=== PATIENT | male | born 1965 | race Caucasian/White ===

== ENCOUNTER 2021-10-23 15:06 | Outpatient (CLI) | payer OTHER, SELFPAY ==
--- NOTE | 2021-10-23 15:30 | MR_ITS ---
[address] [address] Phone:?[phone] Fax:?[phone] Referring Physician Information: Jelani Taylor M.D. [id number] [facility] [address] Phone:?[phone] Fax:?[phone] Patient:Zhao Merritt D.O.B:?1965 Sex:?Male Phone:?[phone] [facility] MRN:?[id number] Exam Date:?10/23/2021 ? EXAM: MRI of the RIGHT KNEE, without contrast CLINICAL: Right knee pain for 4 months. Evaluate for medial meniscal tear. COMPARISONS: None available. TECHNICAL: MR sequences of the right knee: sagittals: PD, PDFS coronals: PD, T2FS axials: PD, PDFS SEDATION: None. CONTRAST: None. FINDINGS: Ligaments: ACL: Intact ACL anteromedial and posterolateral bundles, without sprain or tear. PCL: Intact PCL, without acute or chronic injury. MCL: Intact MCL superficial and deep layers, without injury. LCL: Intact LCL, without injury. Posterolateral corner: Popliteus, biceps femoris, iliotibial band, and the popliteofibular ligament appear intact. Posteromedial corner: Semimembranosus, pes anserine tendons and posterior oblique ligament appear intact. Extensor mechanism: Patellar tendon: Intact, without tendinopathy. Quadriceps tendon: Intact, without tendinopathy. Retinacula: Medial and lateral retinacula are intact. Fat pads: Unremarkable infrapatellar Hoffa's, quadriceps and prefemoral fat pads. Patellofemoral joint: Patella: Focal deep chondral fissure involving the inferior patellar median ridge as seen on sagittal series 6 image 16. Patellar cartilage otherwise appears maintained. Trochlea: Approximately 8 mm segment of full-thickness chondral loss involving the inferior central trochlea on sagittal series 6 image 14. Grade 2-3 chondral loss involves the medial and superior central trochlea. Medial compartment: Medial meniscus: Complex tearing involves the body and posterior horn. There is approximately 3 mm of medial and 3 mm of inferior displacement of torn body segment meniscal tissue into the medial gutter as seen on coronal series 8 images 18-20. Anterior horn and anterior root fibers are intact. Medial cartilage: Grade 3 chondral loss involves the weightbearing extending into the junction with the posterior nonweightbearing medial femoral condyle with minimal subchondral reactive edema. Focal osteophyte formation involves the posterior weightbearing medial femoral condyle with overlying full-thickness chondral loss adjacent to the posterior horn medial meniscus on sagittal series 6 image 21. Grade 3-4 chondral loss involves the anterior medial tibial plateau with mild underlying subchondral reactive marrow edema. Lateral compartment: Lateral meniscus: Focal radial tear near the free edge of the body segment on coronal series 8 image 21. Remainder of the lateral meniscus appears intact. Lateral cartilage: Focal deep chondral fissuring and small segment of deep chondral delamination involving the weightbearing lateral femoral condyle on sagittal series 6 image 8 and coronal series 8 image 22. Foci of deep chondral fissuring and small underlying segments of deep chondral delamination involves the lateral tibial plateau on sagittal series 6 image 10 and coronal series 8 image 19-23. Knee joint: Effusion: Small right knee effusion. Intra-articular bodies:?Small loose body is present within the popliteal cyst. A few adjacent small intra-articular bodies are present within the anterior intercondylar notch anterior to the distal ACL as seen on sagittal series 6 image 15-17 and axial series 4 image 22. Popliteal cyst: Small popliteal cyst is present with a small internal loose body within the popliteal cyst seen on axial series 4 image 17-18. Bones: No suspicious bone marrow signal alteration or fracture line. Degenerative peripheral marginal spurring is seen to involve the proximal tibiofibular articulation with mild reactive marrow edema about the articulation. IMPRESSION: 1. Tearing of the medial meniscus as above, with displacement of torn body segment meniscal tissue into the medial gutter. 2. Focal radial tear near the free edge of the body segment lateral meniscus. 3. Tricompartmental chondromalacia/chondral loss as above. 4. Small joint effusion with small intra-articular bodies within the anterior intercondylar notch. 5. Small popliteal cyst with a small internal loose body. JCZ Electronically signed on 10/24/2021 8:06:00 AM by Waqar Zuñiga D.O.
== END 2021-10-23 15:07 | disposition home or self-care (01) ==
LOC: MRI 15:08
PROVIDERS: Visit Provider Orthopaedic Surgery Sports Medicine
DX: M25.561 Pain in right knee (principal); S83.241A Other tear of medial meniscus, current injury, right knee, initial encounter; S83.281A Other tear of lateral meniscus, current injury, right knee, initial encounter; M94.261 Chondromalacia, right knee; M25.461 Effusion, right knee; M71.21 Synovial cyst of popliteal space [Baker], right knee
CPT/HCPCS: 73721

== ENCOUNTER 2021-12-22 07:42 | Emergency (ER) | payer OTHER, SELFPAY ==
[2021-12-22 07:47] VITALS: BP 165/89; PULSE 83; RESP 18; TEMP 36.3; O2SAT 96; BMI 35.6
--- NOTE | 2021-12-22 08:11 | ED.GENADULT ---
HPI - General Adult General Chief complaint: Difficulty Swallowing Stated complaint: Something stuck in throat Time Seen by Provider: 12/22/21 07:59 Source: patient Mode of arrival: ambulatory Limitations: no limitations History of Present Illness HPI narrative: 56-year-old male coming in today concerned that there is something in the back of his throat. He states that he woke up this morning and felt that there was something growing in the back of his throat. He is not having difficulty breathing or swallowing, he just has a sensation that there is something sitting on the back of his tongue. He denies eating yet this morning. He went to bed last night without any difficulty. States that he did have some alcohol last night. He does snore nightly. States that he had a sleep study several years ago and was not diagnosed with sleep apnea. He coughs for about 20-30 minutes every morning, this was no different today. He denies any fevers, chills, nausea, vomiting. He denies any pain in the back of his throat or mouth. Related Data Home Medications Medication Instructions Recorded Confirmed No Known Home Medications 12/22/21 12/22/21 Allergies Allergy/AdvReac Type Severity Reaction Status Date / Time No Known Drug Allergies Allergy Verified 12/22/21 07:46 Review of Systems Status of ROS: Reports: 10 or more systems reviewed and unremarkable except as noted in History and below [facility] Social History Smoking Status: Never smoker Do you use any of these nicotine containing products: None Second hand tobacco smoke exposure: No How often do you have a drink containing alcohol: 2-4 times a month How often do you have six or more drinks on one occasion: Never AUDIT-C Alcohol total score: 2 Non-prescribed substance use: denies use service: No Exam Narrative: Exam Narrative: Overweight, well-developed patient in no acute distress. Alert and oriented. Answers questions appropriately. Mood and affect are appropriate. Thoughts are goal oriented and rational. No tangential or magical thinking noted. Patient speaks in full sentences without needing to catch his breath. Voice sounds normal. Speech is not slurred or pressured. HEENT: Normocephalic atraumatic. Pupils are equally round reactive to light. Extraocular muscles are intact. Conjunctivae are moist without any icterus noted. Moist mucous membranes. Posterior pharynx is normal aside from a very large uvula that is sitting on the back of his tongue. It does not appear edematous, erythematous are in any other way infected. Neck is soft without any lymphadenopathy or thyromegaly. No masses are appreciated. Normal soft palate. Buccal mucosa is pink and moist. Tongue appears normal. Skin: Well perfused without any obvious rashes. Const: Vital Signs, click to edit/add: Vital Signs - 24 hr 12/22/21 07:47 Temperature 97.4 F L Pulse Rate [Pulse Oximeter] 83 Respiratory Rate 18 Blood Pressure [Ri t Upper Arm] 165/89 H Pulse Oximetry 96 Oxygen Delivery Me thod Room Air Course Vital Signs Vital signs: Initial Vital Signs Temperature 97.4 F L 12/22/21 07:47 Temperature Source Temporal Artery Scan 12/22/21 07:47 Pulse Rate 83 12/22/21 07:47 Respiratory Rate 18 12/22/21 07:47 Blood Pressure 165/89 H 12/22/21 07:47 Blood Pressure Mean 114 12/22/21 07:47 Blood Pressure Position Sitting 12/22/21 07:47 Pulse Oximetry 96 12/22/21 07:47 Oxygen Delivery Method 12/22/21 07:47 Vital Signs Temperature 97.4 F L 12/22/21 07:47 Pulse Rate 83 12/22/21 07:47 Respiratory Rate 18 12/22/21 07:47 Blood Pressure 165/89 H 12/22/21 07:47 Pulse Oximetry 96 12/22/21 07:47 Oxygen Delivery Method 12/22/21 07:47 Temperature 97.4 F L 12/22/21 07:47 Pulse Rate 83 12/22/21 07:47 Respiratory Rate 18 12/22/21 07:47 Blood Pressure 165/89 H 12/22/21 07:47 Pulse Oximetry 96 12/22/21 07:47 Oxygen Delivery Method 12/22/21 07:47 Medical Decision Making MDM Narrative Medical decision making narrative: 56-year-old male with a swollen uvula, likely secondary to snoring and alcohol use. We discussed repeating a sleep study, not drinking before bed. We discussed sleeping positions. We discussed reasons to return to the ER clinic. Patient was agreeable had no other questions. Discharge Plan Discharge Clinical Impression: Uvular swelling Patient Disposition: Home, Self-Care Condition: Stable Additional Instructions: Recommend repeating a sleep study at this time. Consider no alcohol use before bed. Follow-up with your primary care provider as needed. Return to the ER if you have any progressive difficulty breathing or swallowing. Prescriptions: No Action No Known Home Medications Stand Alone Forms: [employer] Info Instructions
== END 2021-12-22 09:11 | disposition home or self-care (01) ==
LOC: ED 09:07
PROVIDERS: Emergency Provider Family Medicine
DX: R60.9 Edema, unspecified (principal); R09.89 Other specified symptoms and signs involving the circulatory and respiratory systems
CPT/HCPCS: 99282; 99283

== ENCOUNTER 2022-02-12 09:38 | Day surgery (SDC) | payer OTHER, SELFPAY ==
[2022-02-12] VITALS (13 sets, daily range): BP systolic 129–154; BP diastolic 81–96; PULSE 54–68; RESP 16; TEMP 36.2–36.8; O2SAT 95–97; BMI 35.1
[2022-02-12] MEDS: LACTATED RINGERS 1000 ML 1,000 ML 100 ML IV (10:00)
[2022-02-12] MEDS: ETHYL CHLORIDE 1 APPLICATION 1 APPLIC TOPICAL (10:25)
[2022-02-12] MEDS: SODIUM CHLORIDE 0.9 % (FLUSH) 10 ML SYRINGE IVF (10:25)
[2022-02-12] MEDS: CEFAZOLIN 2 GM in 0.9 % SODIUM CHLORIDE Mini-bag 100 ML IVPB (13:15)
--- NOTE | 2022-02-12 13:36 | W.ANESCHARGE ---
Anesthesia Charges Start Date/Time Anesthesia Start Date: 02/12/22 Anesthesia Start Time: 13:01 Stop Date/Time Anesthesia Stop Date: 02/12/22 Anesthesia Stop Time: 13:55 Summary Emergency: No
--- NOTE | 2022-02-12 13:36 | SUR.OPER ---
PATIENT QUESTIONS ANSWERED SATISFACTORILY PREOPERATIVELY. PATIENT BROUGHT TO OR #3 PER CART. Patient positioned supine on OR #3 bed for the intubation. Final approval of positioning by surgeon. CONTINUOUS IRRIGATION OF THE RIGHT KNEE WITH 3000 NACL DURING THE PROCEDURE.
[2022-02-12] MEDS: ROPIVACAINE 0.5% 30 ML 150 MG INJECTION (13:41)
--- NOTE | 2022-02-12 13:49 | P.ORPRC_ITS ---
Procedure Note Date of procedure: 02/12/22 Procedure: PREOPERATIVE DIAGNOSIS: 1. Right knee medial and lateral meniscus tear 2. Right knee loose bodies 3. 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 Right knee medial and lateral meniscus tear 2. Right knee loose bodies 3. 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 Right knee arthroscopic partial medial and lateral menisectomy 2. Right knee arthroscopic loose body removal 3 right knee arthroscopic chondroplasty all 3 compartments are (medial, lateral, and patellofemoral) SURGEON: Jelani Taylor M.D. BELT REPAIRER: None ANESTHESIA: Spinal EBL: 2ml TOURNIQUET: 20 minutes at 300 torr COMPLICATIONS: None evident INDICATIONS: The patient is a pleasant 48-year-old male who has experienced right knee pain particularly with any twisting or turning. Physical exam was concerning for medial meniscus tear, this was confirmed on MRI. Additionally, attempted nonoperative management has been tried, and failed. Thus, surgery was recommended. FINDINGS: Indeed show grade 4 chondromalacia medial and lateral femoral condyles. On the medial and lateral both measured approximately 8 x 12 mm in the mL and anterior posterior directions, respectively. There were multiple loose bodies that were removed from the medial compartment of the knee. The largest measured approximately 9 mm in greatest dimension. Grade 3 chondromalacia patellofemoral compartment with the central trochlear groove as well as the patella broadly. Complex tearing medial meniscus from posterior horn to midbody. Lateral meniscus showed mild tearing of the central portion. DESCRIPTION OF PROCEDURE: After a thorough discussion of risks, benefits, and alternatives, the patient was brought to the operating room and placed upon the operating table. Induction of anesthesia was undertaken as previously noted. 2g iv Ancef was administered within 1 hr of incision preoperatively. Appropriate time-out was performed identifying proper patient, site, and procedure. The right lower extremity was prepped and draped in the appropriate sterile fashion using ChloraPrep. The limb was exsanguinated and tourniquet inflated. Anterolateral and anteromedial portals were established with an 11 blade, and a diagnostic arthroscopy was performed. This identified the findings as noted above. Following the diagnostic arthroscopy, a partial medial and lateral menisectomy was performed with the combination of basket forceps and a motorized shaver. Following this, the meniscus was re-probed and found to be stable. Approximately 20% of the medial meniscus and 5-10% of the lateral meniscus required resection. In addition, pituitary rongeur was utilized to help capture the loose bodies and removed him from the knee. Again the largest measured approximately 9 mm in diameter. Finally, chondroplasty was performed of the medial and lateral femoral condyles with loose chondral flaps. Also the patellofemoral compartment primarily involving the patella but also the trochlear groove with some loose chondral flaps. At this stage, the shaver was reinserted into the suprapatellar pouch and all re maining meniscal debris was evacuated. Instruments were removed, excess fluid was drained, and closure performed with 4-0 Monocryl with Steri-Strips. Dressings were applied, the tourniquet deflated, and the patient was awoken from anesthesia and transferred to the PACU in stable condition. PLAN: 1. Weightbear as tolerated operative extremity. Crutch / walker ambulation assistance PRN. 2. Ice, acetominophen and/or ibuprofen, and Percocet for pain as needed. 3. Knee range of motion and quad sets/straight leg raise regularly 4. Follow up with PA visit in 1-2 weeks for a wound check and possibly to initiate physical therapy.
--- NOTE | 2022-02-12 14:02 | W.ANESCHARGE ---
Anesthesia Charges Start Date/Time Anesthesia Start Date: 02/12/22 Anesthesia Start Time: 13:01 Stop Date/Time Anesthesia Stop Date: 02/12/22 Anesthesia Stop Time: 13:55 Summary Emergency: No
== END 2022-02-12 16:20 | disposition home or self-care (01) ==
PROVIDERS: Visit Provider Orthopaedic Surgery Sports Medicine
PROC: (CPT 29870; principal; 2022-02-12 11:30)
DX: S83.231A Complex tear of medial meniscus, current injury, right knee, initial encounter (principal); S83.281A Other tear of lateral meniscus, current injury, right knee, initial encounter; M22.41 Chondromalacia patellae, right knee; M23.41 Loose body in knee, right knee
CPT/HCPCS: 29880; 01400; 97161; J0690; J2400; J2704; J2795; J7120

== ENCOUNTER 2022-04-29 12:04 | Emergency (ER) | payer OTHER, SELFPAY ==
[2022-04-29] VITALS (37 sets, daily range): BP systolic 128–172; BP diastolic 87–121; PULSE 59–84; RESP 18; TEMP 36.9; O2SAT 93–99; BMI 35.6
--- NOTE | 2022-04-29 12:37 | CRLHL7_ITS ---
For Patients: As a result of the Century Cures Act, medical imaging exams and procedure reports are released immediately into your electronic medical record. You may view this report before your referring provider. If you have questions, please contact your health care provider. DATE: 04/29/2022 CLINICAL HISTORY: Patient with dizziness. TECHNIQUE: Standard helical CT image acquisition through the intracranial circulation following intravenous administration of contrast material with bolus tracking. Multiplanar reconstructed images were performed and interpreted. COMPARISON: CT same day. FINDINGS: There is no cerebral aneurysm or large vessel occlusion. The right internal carotid artery is normal. The right middle cerebral artery and its branches are normal. The right anterior cerebral artery and its branches are normal. The left internal carotid artery is normal. The left middle cerebral artery and its branches are normal. The left anterior cerebral artery and its branches are normal. The anterior communicating artery is well visualized and appears normal. The right vertebral artery and PICA are normal. The left vertebral artery and PICA are normal. The right vertebral artery is dominant. The basilar artery is patent and appears normal. The right posterior cerebral artery is normal. The left posterior cerebral artery is normal. The visualized venous structures are patent. IMPRESSION: Normal CT angiogram of the head without intracranial aneurysm or other neurovascular abnormality. Please note that all CT scans at this facility use dose modulation, iterative reconstruction, and/or weight-based dosing when appropriate to reduce radiation dose to as low as reasonably achievable. Dictated by Daniele Rao MD @ 04/29/2022 1:55:00 PM (Electronically Signed)
--- NOTE | 2022-04-29 12:37 | CRLHL7_ITS ---
For Patients: As a result of the Century Cures Act, medical imaging exams and procedure reports are released immediately into your electronic medical record. You may view this report before your referring provider. If you have questions, please contact your health care provider. DATE: 04/29/2022 CLINICAL HISTORY: Patient with dizziness. TECHNIQUE: Standard helical CT image acquisition of the neck up to the skull base after bolus intravenous contrast enhancement. Multiplanar reconstructed images performed on a separate workstation. COMPARISON: CT same day. FINDINGS: The origins of the great vessels from the aortic arch are patent. The origin of the right vertebral artery is patent. The origin of the left vertebral artery is patent. The common carotid arteries are patent. There is no stenosis at the origin of the right internal carotid artery. There is no stenosis at the origin of the left internal carotid artery. The rest of the cervical segments of the internal carotid arteries are patent up to the skull base. The right vertebral artery is dominant. The cervical segments of the vertebral arteries are patent up to the skull base. The visualized intracranial vasculature is unremarkable. The visualized lung apices are unremarkable. The thyroid gland is unremarkable. The soft tissues of the neck are unremarkable. There are degenerative changes in the cervical spine. IMPRESSION: Normal CT angiogram of the neck. Please note that all CT scans at this facility use dose modulation, iterative reconstruction, and/or weight-based dosing when appropriate to reduce radiation dose to as low as reasonably achievable. Dictated by Daniele Rao MD @ 04/29/2022 1:57:17 PM (Electronically Signed)
--- NOTE | 2022-04-29 12:37 | CRLHL7_ITS ---
For Patients: As a result of the Century Cures Act, medical imaging exams and procedure reports are released immediately into your electronic medical record. You may view this report before your referring provider. If you have questions, please contact your health care provider. INDICATION: Dizziness TECHNIQUE: CT head without contrast. COMPARISON: None. FINDINGS: CSF spaces: Within normal limits for age. Brain parenchyma and extra-axial spaces: The richmond-white differentiation is normal. No sign of intracranial hemorrhage, or midline shift. No extra-axial fluid collection. Skull base and calvarium: The visualized paranasal sinuses and mastoid air cells demonstrate no acute or significant findings. The visualized orbits are grossly unremarkable. No skull fractures. IMPRESSION: No evidence of acute intracranial abnormality. Specifically, no evidence of acute intracranial hemorrhage. If there is further clinical concern for acute/subacute ischemia would recommend further evaluation with MRI which would be more sensitive. Findings discussed with Dr. Lopez at 1:18 p.m. 04/29/2019. Please note that all CT scans at this facility use dose modulation, iterative reconstruction, and/or weight-based dosing when appropriate to reduce radiation dose to as low as reasonably achievable. Dictated by Jonny Cline MD @ 04/29/2022 1:18:45 PM (Electronically Signed)
[2022-04-29 13:11] LABS: Basophils Absolute Auto 0.02 K/uL (0.00-0.30); Basophils Percent Auto 0.3 % (0.0-3.0); Eosinophils Percent Auto 1.5 % (0.0-7.0); Hematocrit 42.4 % (37.0-53.0); Hemoglobin* 14.4 gm/dL (13.5-17.5); Immature Granulocytes Abs Auto 0.01 K/uL (0.00-0.30); Immature Granulocytes Pct Auto 0.2 %; Lymphocytes Absolute Auto 1.63 K/uL (0.90-2.90); Lymphocytes Percent Auto 25.2 % (20-44); Mean Corpuscular HGB Conc 34 gm/dL (32-36); Mean Corpuscular Hemoglobin 31 pg (26-34); Mean Corpuscular Volume 91 fL (80-100); Monocytes Percent Auto 9.6 % (0.0-11.0); Neutrophils Absolute Auto 4.08 K/uL (1.7-7.0); Neutrophils Percent Auto 63.2 % (42.0-72.0); Platelet Count* 234 K/uL (140-440); RDW Coefficient of Variation % 13.1 % (11.5-15.5); Red Blood Count 4.66 m/uL (4.30-5.90); White Blood Count* 6.46 K/uL (4.50-11.00)
[2022-04-29 13:12] LABS: Chloride* 104 mmol/L (96-114); Sodium* 140 mmol/L (135-149)
[2022-04-29 13:15] LABS: Blood Urea Nitrogen* 18 mg/dL (7-30); Carbon Dioxide* 29 mmol/L (20-32); Creatinine* 0.8 mg/dL (0.5-1.5); Est. Creatinine Clearance* 113.75; Estimated Glomerular Filt Rate 103 ml/min; Glucose* 90 mg/dL (60-115); Slide Review Reflex No
[2022-04-29 13:16] LABS: Calcium* 9.4 mg/dL (8.4-10.6)
[2022-04-29] MEDS: 0.9 % SODIUM CHLORIDE 1000 ml 1,000 ML IV (13:17)
[2022-04-29] MEDS: LORazepam 2 MG/ML inj 0.5 MG IVP (13:19)
[2022-04-29 13:39] LABS: PCR FLU A Negative PCR FLU A (Negative); PCR FLU B Negative PCR FLU B (Negative); PCR RSV Negative PCR RSV (Negative)
--- NOTE | 2022-04-29 13:39 | CRLHL7_ITS ---
For Patients: As a result of the Century Cures Act, medical imaging exams and procedure reports are released immediately into your electronic medical record. You may view this report before your referring provider. If you have questions, please contact your health care provider. Indication: Dizziness, rule out stroke Technique: Multiplanar, multisequence MRI of the brain obtained without contrast. Comparison: CT head 04/29/2022 Findings: The ventricles and cortical sulci are stable in configuration. No midline shift, hydrocephalus or herniation. No acute/subacute ischemia, intracranial hemorrhage or abnormal extra-axial fluid collection. Minimal scattered punctate foci of FLAIR hyperintensity are noted throughout the supratentorial white matter. Midline structures are unremarkable. The major expected intracranial flow voids are visualized. Included bone marrow signal is unremarkable. No suspicious findings in the regional soft tissues. Paranasal sinuses and mastoid air cells have a normal signal. Visualized orbits are unremarkable. Impression: Unremarkable MRI brain. No evidence of acute intracranial abnormality. Dictated by Suyapa Schmitz MD @ 04/29/2022 5:56:02 PM (Electronically Signed)
--- NOTE | 2022-04-29 13:44 | ED_ITS ---
HPI - Dizziness General Date Seen: 04/29/22 <Bert Lopez MD - Last Filed: 05/01/22 00:53> Chief Complaint: Dizziness/Vertigo <Bert Lopez MD - Last Filed: 05/01/22 00:53> Stated Complaint: Dizzy, lightheaded <Bert Lopez MD - Last Filed: 05/01/22 00:53> Time Seen by Provider: 04/29/22 12:21 <Bert Lopez MD - Last Filed: 05/01/22 00:53> Source: patient <Bert Lopez MD - Last Filed: 05/01/22 00:53> Mode of arrival: ambulatory <Bert Lopez MD - Last Filed: 05/01/22 00:53> Limitations: no limitations <Bert Lopez MD - Last Filed: 05/01/22 00:53> History of Present Illness HPI Narrative: 56-year-old gentleman presents here for evaluation of dizziness, he was out in [place], in a cooler, counting beer, when he noticed dizziness, this was not associated with bending over, he felt almost that he had a bit of a drinking gait, there is no nausea, or feeling that he might vomit he denies any numbness tingling or weakness, but did feel like he was almost like on a ship. The feeling has improved but still there, when he walked any felt that he might still fall over. He reports no history of trauma falls, fevers chills or sweats he does not have a headache, and there is no history of this happening previously. No illness within the last month leading up to this, his hearing is spine, with no tinnitus, or loss of hearing. No previous history of strokes or cardiac issues, these are early on no medications, denies alcohol intake. <Bert Lopez MD - Last Filed: 05/01/22 00:53> MD elicited complaint: dizziness and lightheadedness <Bert Lopez MD - Last Filed: 05/01/22 00:53> Onset (ago): hour(s) <Bert Lopez MD - Last Filed: 05/01/22 00:53> Timing: sudden onset <Bert Lopez MD - Last Filed: 05/01/22 00:53> Severity: moderate <Bert Lopez MD - Last Filed: 05/01/22 00:53> Description: sense of movement, off-balance and difficulty walking <Bert Lopez MD - Last Filed: 05/01/22 00:53> History of similar symptoms: No <Bert Lopez MD - Last Filed: 05/01/22 00:53> Exacerbating factors: change in body position <Bert Lopez MD - Last Filed: 05/01/22 00:53> Relieving factors: nothing <Bert Lopez MD - Last Filed: 05/01/22 00:53> Associated symptoms: denies other symptoms <Bert Lopez MD - Last Filed: 05/01/22 00:53> Related Data Home Medications: Previous Rx's Medication Instructions Recorded meclizine 25 mg tablet 25 mg PO TID #21 tabs 04/29/22 <Bert Lopez MD - Last Filed: 05/01/22 00:53> Allergies/Adverse Reactions: Allergies Allergy/AdvReac Type Severity Reaction Status Date / Time No Known Drug Allergies Allergy Verified 04/29/22 12:15 <Bert Lopez MD - Last Filed: 05/01/22 00:53> Review of Systems Status of ROS: Reports: 10 or more systems reviewed and unremarkable except as noted in History and below <Bert Lpoez MD - Last Filed: 05/01/22 00:53> PFSH PFS Medical History: Medical History Adenomatous colon polyp Low back pain <Bert Lopez MD - Last Filed: 05/01/22 00:53> Surgical History: Surgical History History of total right hip arthroplasty Hx of arthroscopy of right knee Hx of colonoscopy Hx of laminectomy <Bert Lopez MD - Last Filed: 05/01/22 00:53> Social History: Social History Smoking Status: Never smoker Do you use any of these nicotine containing products: None Second hand tobacco smoke exposure: No How often do you have a drink containing alcohol: 2-4 times a month How often do you have six or more drinks on one occasion: Never AUDIT-C Alcohol total score: 2 Non-prescribed substance use: denies use Caffeine: No service: No <Bert oLpez MD - Last Filed: 05/01/22 00:53> Exam Narrative: Exam Narrative: Patient is peaking normally,no problem with slurring words, oriented x3. Head eyes ears nose and throat exam show equal pupils, no scleral icterus, extraocular muscles are normal, no facial droop, speech is normal, trachea normal and midline. Cranial nerves 3-12 are normal, with notable horizontal nystagmus 2 beats bilaterally. TMs bilaterally are normal. Thyroid normal midline palpable not enlarged. Chest shows symmetrical rise bilaterally, normal auscultation with no wheezes, no increased work of breathing, no overt bruising or lesions seen, no tenderness is noted on auscultation. Heart sounds normal with no S3-S4 no murmurs clicks or gallops. Abdomen shows no obvious masses or hepatosplenomegaly, no organomegaly, bowel sounds are normal in all quadrants. No tenderness is noted also in all quadrants. Upper and lower extremities show normal power, normal range of motion, pulses are normal, sensations normal, fine motor movements are normal, pelvis is stable to rocking. Cervical spine shows normal range of motion, and palpably not tender. Thoracic spine shows normal range of motion, and palpably not tender, lumbar spine shows no tenderness to palpation percussion and is otherwise normal range of motion. Skin shows no rashes, petechiae or eccymosis. Gait is otherwise normal, <Bert Lopez MD - Last Filed: 05/01/22 00:53> Const: Vital Signs, click to edit/add: Vital Signs - 24 hr 04/29/22 12:08 04/29/22 12:31 04/29/22 12:32 Temperature 98.4 F Pulse Rate 77 76 Pulse Rate [Left P ulse Oximeter] 78 Respiratory Rate 18 Blood Pressure 148/109 H Blood Pressure [Ri ght Upper Arm] 149/109 H Pulse Oximetry 97 98 97 Oxygen Delivery Me thod Room Air 04/29/22 12:45 04/29/22 12:33 04/29/22 13:12 Temperature Pulse Rate 79 84 Pulse Rate [Left P ulse Oximeter] Respiratory Rate Blood Pressure Blood Pressure [Ri ght Upper Arm] Pulse Oximetry 98 98 97 Oxygen Delivery Wa thod 04/29/22 13:15 04/29/22 13:16 04/29/22 13:30 Temperature Pulse Rate 76 72 84 Pulse Rate [Left P ulse Oximeter] Respiratory Rate Blood Pressure 135/121 H Blood Pressure [Ri ght Upper Arm] Pulse Oximetry 96 97 93 Oxygen Delivery Me thod 04/29/22 13:32 04/29/22 14:00 04/29/22 14:03 Temperature Pulse Rate 71 68 78 Pulse Rate [Left P ulse Oximeter] Respiratory Rate Blood Pressure 144/101 H 146/103 H Blood Pressure [Ri ght Upper Arm] Pulse Oximetry 94 94 96 Oxygen Delivery Wa thod 04/29/22 14:04 04/29/22 14:33 04/29/22 14:35 Temperature Pulse Rate 75 60 63 Pulse Rate [Left P ulse Oximeter] Respiratory Rate Blood Pressure 128/87 Blood Pressure [Ri ght Upper Arm] Pulse Oximetry 95 95 98 Oxygen Delivery Wa thod 04/29/22 14:36 04/29/22 15:00 04/29/22 15:03 Temperature Pulse Rate 65 66 72 Pulse Rate [Left P ulse Oximeter] Respiratory Rate Blood Pressure 139/90 H Blood Pressure [Ri ght Upper Arm] Pulse Oximetry 97 95 94 Oxygen Delivery Wa thod 04/29/22 15:04 04/29/22 15:30 04/29/22 15:32 Temperature Pulse Rate 81 69 66 Pulse Rate [Left P ulse Oximeter] Respiratory Rate Blood Pressure 147/93 H Blood Pressure [Ri ght Upper Arm] Pulse Oximetry 97 95 96 Oxygen Delivery Wa thod 04/29/22 15:33 04/29/22 16:00 04/29/22 16:02 Temperature Pulse Rate 68 64 66 Pulse Rate [Left P ulse Oximeter] Respiratory Rate Blood Pressure 146/99 H Blood Pressure [Ri ght Upper Arm] Pulse Oximetry 96 96 97 Oxygen Delivery Wa thod 04/29/22 16:03 04/29/22 16:32 04/29/22 16:38 Temperature Pulse Rate 78 73 Pulse Rate [Left P ulse Oximeter] Respiratory Rate Blood Pressure 151/101 H Blood Pressure [Ri ght Upper Arm] Pulse Oximetry 96 98 Oxygen Delivery Me thod 04/29/22 17:25 04/29/22 17:26 04/29/22 17:30 Temperature Pulse Rate 63 69 61 Pulse Rate [Left P ulse Oximeter] Respiratory Rate Blood Pressure 146/87 H Blood Pressure [Ri ght Upper Arm] Pulse Oximetry 98 98 99 Oxygen Delivery Me thod 04/29/22 17:33 04/29/22 17:34 04/29/22 18:00 Temperature Pulse Rate 61 62 66 Pulse Rate [Left P ulse Oximeter] Respiratory Rate Blood Pressure 152/91 H Blood Pressure [Ri ght Upper Arm] Pulse Oximetry 98 96 96 Oxygen Delivery Me thod 04/29/22 18:03 04/29/22 18:04 04/29/22 18:30 Temperature Pulse Rate 66 65 65 Pulse Rate [Left P ulse Oximeter] Respiratory Rate Blood Pressure 172/111 H Blood Pressure [Ri ght Upper Arm] Pulse Oximetry 97 98 98 Oxygen Delivery Me thod 04/29/22 18:33 Temperature Pulse Rate 59 L Pulse Rate [Left P ulse Oximeter] Respiratory Rate Blood Pressure 156/98 H Blood Pressure [Ri ght Upper Arm] Pulse Oximetry 98 Oxygen Delivery Me thod <Bert Lopez MD - Last Filed: 05/01/22 00:53> Vital Signs, click to edit/add: Vital Signs - 24 hr 04/29/22 12:08 04/29/22 12:31 04/29/22 12:32 Temperature 98.4 F Pulse Rate 77 76 Pulse Rate [Left P ulse Oximeter] 78 Respiratory Rate 18 Blood Pressure 148/109 H Blood Pressure [Ri ght Upper Arm] 149/109 H Pulse Oximetry 97 98 97 Oxygen Delivery Me thod Room Air 04/29/22 12:45 04/29/22 12:33 04/29/22 13:12 Temperature Pulse Rate 79 84 Pulse Rate [Left P ulse Oximeter] Respiratory Rate Blood Pressure Blood Pressure [Ri ght Upper Arm] Pulse Oximetry 98 98 97 Oxygen Delivery Me thod 04/29/22 13:15 04/29/22 13:16 04/29/22 13:30 Temperature Pulse Rate 76 72 84 Pulse Rate [Left P ulse Oximeter] Respiratory Rate Blood Pressure 135/121 H Blood Pressure [Ri ght Upper Arm] Pulse Oximetry 96 97 93 Oxygen Delivery Me thod 04/29/22 13:32 04/29/22 14:00 04/29/22 14:03 Temperature Pulse Rate 71 68 78 Pulse Rate [Left P ulse Oximeter] Respiratory Rate Blood Pressure 144/101 H 146/103 H Blood Pressure [Ri ght Upper Arm] Pulse Oximetry 94 94 96 Oxygen Delivery Wa thod 04/29/22 14:04 04/29/22 14:33 04/29/22 14:35 Temperature Pulse Rate 75 60 63 Pulse Rate [Left P ulse Oximeter] Respiratory Rate Blood Pressure 128/87 Blood Pressure [Ri ght Upper Arm] Pulse Oximetry 95 95 98 Oxygen Delivery Wa thod 04/29/22 14:36 04/29/22 15:00 04/29/22 15:03 Temperature Pulse Rate 65 66 72 Pulse Rate [Left P ulse Oximeter] Respiratory Rate Blood Pressure 139/90 H Blood Pressure [Ri ght Upper Arm] Pulse Oximetry 97 95 94 Oxygen Delivery Wa thod 04/29/22 15:04 04/29/22 15:30 04/29/22 15:32 Temperature Pulse Rate 81 69 66 Pulse Rate [Left P ulse Oximeter] Respiratory Rate Blood Pressure 147/93 H Blood Pressure [Ri ght Upper Arm] Pulse Oximetry 97 95 96 Oxygen Delivery Wa thod 04/29/22 15:33 04/29/22 16:00 04/29/22 16:02 Temperature Pulse Rate 68 64 66 Pulse Rate [Left P ulse Oximeter] Respiratory Rate Blood Pressure 146/99 H Blood Pressure [Ri ght Upper Arm] Pulse Oximetry 96 96 97 Oxygen Delivery Wa thod 04/29/22 16:03 04/29/22 16:32 04/29/22 16:38 Temperature Pulse Rate 78 73 Pulse Rate [Left P ulse Oximeter] Respiratory Rate Blood Pressure 151/101 H Blood Pressure [Ri ght Upper Arm] Pulse Oximetry 96 98 Oxygen Delivery Wa thod 04/29/22 17:25 04/29/22 17:26 04/29/22 17:30 Temperature Pulse Rate 63 69 61 Pulse Rate [Left P ulse Oximeter] Respiratory Rate Blood Pressure 146/87 H Blood Pressure [Ri ght Upper Arm] Pulse Oximetry 98 98 99 Oxygen Delivery Wa thod 04/29/22 17:33 04/29/22 17:34 04/29/22 18:00 Temperature Pulse Rate 61 62 66 Pulse Rate [Left P ulse Oximeter] Respiratory Rate Blood Pressure 152/91 H Blood Pressure [Ri ght Upper Arm] Pulse Oximetry 98 96 96 Oxygen Delivery Me thod 04/29/22 18:03 04/29/22 18:04 04/29/22 18:30 Temperature Pulse Rate 66 65 65 Pulse Rate [Left P ulse Oximeter] Respiratory Rate Blood Pressure 172/111 H Blood Pressure [Ri ght Upper Arm] Pulse Oximetry 97 98 98 Oxygen Delivery Me thod 04/29/22 18:33 Temperature Pulse Rate 59 L Pulse Rate [Left P ulse Oximeter] Respiratory Rate Blood Pressure 156/98 H Blood Pressure [Ri ght Upper Arm] Pulse Oximetry 98 Oxygen Delivery Me thod <Oleksandr Anderson MD - Last Filed: 04/29/22 22:30> Documenting provider has reviewed patient's vital signs: yes <Bert Lopez MD - Last Filed: 05/01/22 00:53> Course Course Hospital Course: I discussed with patient his , the CT CTA of his head neck was oth erwise normal, this is not rule out a small stroke in given his history of acute onset of the dizziness, I would recommend that we go ahead and do an MRI of his head, he is in agreement with this as is , we will pre treat him with aspirin also, the fact that the CT regular of his head was negative. He feels much better now after the lorazepam and the fluids. <Bert Lopez MD - Last Filed: 05/01/22 00:53> Vital Signs Vital signs: Initial Vital Signs Temperature 98.4 F 04/29/22 12:08 Temperature Source Temporal Artery Scan 04/29/22 12:08 Pulse Rate 78 04/29/22 12:08 Respiratory Rate 18 04/29/22 12:08 Blood Pressure 149/109 H 04/29/22 12:08 Blood Pressure Mean 122 04/29/22 12:08 Blood Pressure Position Sitting 04/29/22 12:08 Pulse Oximetry 97 04/29/22 12:08 Oxygen Delivery Method 04/29/22 12:08 Vital Signs Temperature 98.4 F 04/29/22 12:08 Pulse Rate 78 04/29/22 12:08 Respiratory Rate 18 04/29/22 12:08 Blood Pressure 149/109 H 04/29/22 12:08 Pulse Oximetry 97 04/29/22 12:08 Oxygen Delivery Method 04/29/22 12:08 Temperature 98.4 F 04/29/22 12:08 Pulse Rate 59 L 04/29/22 18:33 Respiratory Rate 18 04/29/22 12:08 Blood Pressure 156/98 H 04/29/22 18:33 Pulse Oximetry 98 04/29/22 18:33 Oxygen Delivery Method 04/29/22 12:08 <Bert Lopez MD - Last Filed: 05/01/22 00:53> Initial Vital Signs Temperature 98.4 F 04/29/22 12:08 Temperature Source Temporal Artery Scan 04/29/22 12:08 Pulse Rate 78 04/29/22 12:08 Respiratory Rate 18 04/29/22 12:08 Blood Pressure 149/109 H 04/29/22 12:08 Blood Pressure Mean 122 04/29/22 12:08 Blood Pressure Position Sitting 04/29/22 12:08 Pulse Oximetry 97 04/29/22 12:08 Oxygen Delivery Method 04/29/22 12:08 Vital Signs Temperature 98.4 F 04/29/22 12:08 Pulse Rate 78 04/29/22 12:08 Respiratory Rate 18 04/29/22 12:08 Blood Pressure 149/109 H 04/29/22 12:08 Pulse Oximetry 97 04/29/22 12:08 Oxygen Delivery Method 04/29/22 12:08 Temperature 98.4 F 04/29/22 12:08 Pulse Rate 59 L 04/29/22 18:33 Respiratory Rate 18 04/29/22 12:08 Blood Pressure 156/98 H 04/29/22 18:33 Pulse Oximetry 98 04/29/22 18:33 Oxygen Delivery Method 04/29/22 12:08 <Oleksandr Anderson MD - Last Filed: 04/29/22 22:30> MDM - Dizziness MDM Narrative Medical decision making narrative: Life-threatening differential diagnosis considered include, CVA, other differential diagnosis include BPPV, labyrinthitis, Meniere's disease, vestibular neuronitis, migraine, multiple sclerosis, otitis media, viral syndrome as well as other etiologies <Bert Lopez MD - Last Filed: 05/01/22 00:53> Life-threatening differential diagnosis considered include, CVA, other differential diagnosis include BPPV, labyrinthitis, Meniere's disease, v estibular neuronitis, migraine, multiple sclerosis, otitis media, viral syndrome as well as other etiologies I inherited this patient at change of shift from Dr. Lopez. presentingto the emergency department for vertiginous symptoms. Pending at the time was an MRI of the head. alreadyAccomplished wasA normal CTHead with unremarkable angiographyOf headAnd neck Mr. Merritt was feeling much improved After treatment Of IV fluids, Ativan and possibly time. on Repeat exam There was some Subtle Nystagmus beating right But otherwise Pretty asymptomatic. The nystagmus resolved with repeat exam. Further inquiry around events of today he is describing more of a lightheadedness with then this tilting and needing to hang onto thingsand experiencing a subtle dizziness. No chestpain and no shortnessof breath. MRI of the head wasunremarkable. No events on desk monitor during time in the emergency department. no evidenceof CVA. Relativelybrief duration and without prodrome unlikely to be labyrinthitis orMeniere's. possible canalith matter. Possible headache etiology but otherwise appears to be more of A periphera lIssueAnd there are No findings onCardiac aspectOfWorkup.No seizure-like activityOrAmnesia or postictal behavior. We discussed optionsfor furthertreatment should that be necessary. Was ambulatoryfrom the emergency department. -dr <Oleksandr Anderson MD - Last Filed: 04/29/22 22:30> Medical Records Attestation: I reviewed the patient's medical records. <Bert Lopez MD - Last Filed: 05/01/22 00:53> Lab Data Attestation: I reviewed the patient's lab results. <Bert Lopez MD - Last Filed: 05/01/22 00:53> Labs: Lab Results 04/29/22 04/29/22 04/29/22 Range/Units 12:37 12:40 12:45 WBC 6.46 (4.50-11.00) K/uL RBC 4.66 (4.30-5.90) m/uL Hgb 14.4 (13.5-17.5) gm/dL Hct 42.4 (37.0-53.0) % MCV 91 (80-100) fL MCH 31 (26-34) pg MCHC 34 (32-36) gm/dL RDW Coeff of Rolo 13.1 (11.5-15.5) % Plt Count 234 (140-440) K/uL Neut % (Auto) 63.2 (42.0-72.0) % Lymph % (Auto) 25.2 (20-44) % [place] % (Auto) 9.6 (0.0-11.0) % Eos % (Auto) 1.5 (0.0-7.0) % Baso % (Auto) 0.3 (0.0-3.0) % Neut # (Auto) 4.08 (1.7-7.0) K/uL Lymph # (Auto) 1.63 (0.90-2.90) K/uL [place] # (Auto) 0.60 (0.00-0.90) K/UL Eos # (Auto) 0.10 (0.00-0.50) K/uL Baso # (Auto) 0.02 (0.00-0.30) K/uL Sodium (135-149) mmol/L Potassium (3.6-5.1) mmol/L Chloride (96-114) mmol/L Carbon Dioxide (20-32) mmol/L BUN (7-30) mg/dL Creatinine (0.5-1.5) mg/dL Estimated Creat Clear Estimated GFR ml/min Glucose (60-115) mg/dL Calcium (8.4-10.6) mg/dL C-Reactive Protein SARS-CoV-2 (PCR) Negative SARS-CoV-2 (Negative) Influenza Type A (PCR) Negative PCR FLU A (Negative) Influenza Type B (PCR) Negative PCR FLU B (Negative) RSV (PCR) Negative PCR RSV (Negative) POC Troponin I 0.00 L (0.01-0.04) ng/ml 04/29/22 04/29/22 Range/Units 12:45 12:45 WBC (4.50-11.00) K/uL RBC (4.30-5.90) m/uL Hgb (13.5-17.5) gm/dL Hct (37.0-53.0) % MCV (80-100) fL MCH (26-34) pg MCHC (32-36) gm/dL RDW Coeff of Rool (11.5-15.5) % Plt Count (140-440) K/uL Neut % (Auto) (42.0-72.0) % Lymph % (Auto) (20-44) % [place] % (Auto) (0.0-11.0) % Eos % (Auto) (0.0-7.0) % Baso % (Auto) (0.0-3.0) % Neut # (Auto) (1.7-7.0) K/uL Lymph # (Auto) (0.90-2.90) K/uL [place] # (Auto) (0.00-0.90) K/UL Eos # (Auto) (0.00-0.50) K/uL Baso # (Auto) (0.00-0.30) K/uL Sodium 140 (135-149) mmol/L Potassium 4.0 (3.6-5.1) mmol/L Chloride 104 (96-114) mmol/L Carbon Dioxide 29 (20-32) mmol/L BUN 18 (7-30) mg/dL Creatinine 0.8 (0.5-1.5) mg/dL Estimated Creat Clear 113.75 Estimated GFR 103 ml/min Glucose 90 (60-115) mg/dL Calcium 9.4 (8.4-10.6) mg/dL C-Reactive Protein Cancelled < 0.5 L SARS-CoV-2 (PCR) (Negative) Influenza Type A (PCR) (Negative) Influenza Type B (PCR) (Negative) RSV (PCR) (Negative) POC Troponin I (0.01-0.04) ng/ml <Bert Lopez MD - Last Filed: 05/01/22 00:53> Lab Results 04/29/22 04/29/22 04/29/22 Range/Units 12:37 12:40 12:45 WBC 6.46 (4.50-11.00) K/uL RBC 4.66 (4.30-5.90) m/uL Hgb 14.4 (13.5-17.5) gm/dL Hct 42.4 (37.0-53.0) % MCV 91 (80-100) fL MCH 31 (26-34) pg MCHC 34 (32-36) gm/dL RDW Coeff of Rolo 13.1 (11.5-15.5) % Plt Count 234 (140-440) K/uL Neut % (Auto) 63.2 (42.0-72.0) % Lymph % (Auto) 25.2 (20-44) % [place] % (Auto) 9.6 (0.0-11.0) % Eos % (Auto) 1.5 (0.0-7.0) % Baso % (Auto) 0.3 (0.0-3.0) % Neut # (Auto) 4.08 (1.7-7.0) K/uL Lymph # (Auto) 1.63 (0.90-2.90) K/uL [place] # (Auto) 0.60 (0.00-0.90) K/UL Eos # (Auto) 0.10 (0.00-0.50) K/uL Baso # (Auto) 0.02 (0.00-0.30) K/uL Sodium (135-149) mmol/L Potassium (3.6-5.1) mmol/L Chloride (96-114) mmol/L Carbon Dioxide (20-32) mmol/L BUN (7-30) mg/dL Creatinine (0.5-1.5) mg/dL Estimated Creat Clear Estimated GFR ml/min Glucose (60-115) mg/dL Calcium (8.4-10.6) mg/dL C-Reactive Protein SARS-CoV-2 (PCR) Negative SARS-CoV-2 (Negative) Influenza Type A (PCR) Negative PCR FLU A (Negative) Influenza Type B (PCR) Negative PCR FLU B (Negative) RSV (PCR) Negative PCR RSV (Negative) POC Troponin I 0.00 L (0.01-0.04) ng/ml 04/29/22 04/29/22 Range/Units 12:45 12:45 WBC (4.50-11.00) K/uL RBC (4.30-5.90) m/uL Hgb (13.5-17.5) gm/dL Hct (37.0-53.0) % MCV (80-100) fL MCH (26-34) pg MCHC (32-36) gm/dL RDW Coeff of Rolo (11.5-15.5) % Plt Count (140-440) K/uL Neut % (Auto) (42.0-72.0) % Lymph % (Auto) (20-44) % [place] % (Auto) (0.0-11.0) % Eos % (Auto) (0.0-7.0) % Baso % (Auto) (0.0-3.0) % Neut # (Auto) (1.7-7.0) K/uL Lymph # (Auto) (0.90-2.90) K/uL [place] # (Auto) (0.00-0.90) K/UL Eos # (Auto) (0.00-0.50) K/uL Baso # (Auto) (0.00-0.30) K/uL Sodium 140 (135-149) mmol/L Potassium 4.0 (3.6-5.1) mmol/L Chloride 104 (96-114) mmol/L Carbon Dioxide 29 (20-32) mmol/L BUN 18 (7-30) mg/dL Creatinine 0.8 (0.5-1.5) mg/dL Estimated Creat Clear 113.75 Estimated GFR 103 ml/min Glucose 90 (60-115) mg/dL Calcium 9.4 (8.4-10.6) mg/dL C-Reactive Protein Cancelled < 0.5 L SARS-CoV-2 (PCR) (Negative) Influenza Type A (PCR) (Negative) Influenza Type B (PCR) (Negative) RSV (PCR) (Negative) POC Troponin I (0.01-0.04) ng/ml <Oleksandr Anderson MD - Last Filed: 04/29/22 22:30> Imaging Data CT scan - head: Radiologist's impression: atient: SUKI MERRITT Facility:[facility] Patient ID:?[id number] Site Patient ID:?[id number]. Site :?1965 Study:?CT Head STROKE PROTOCOL-04/29/2022 1:01:17 PM Ordering Physician:Marty Noel Final Report: INDICATION: Dizziness TECHNIQUE: CT head without contrast. COMPARISON: None. FINDINGS: CSF spaces: Within normal limits for age. Brain parenchyma and extra-axial spaces: The richmond-white differentiation is normal. No sign of intracranial hemorrhage, or midline shift. No extra-axial fluid collection. Skull base and calvarium: The visualized paranasal sinuses and mastoid air cells demonstrate no acute or significant findings. The visualized orbits are grossly unremarkable. No skull fractures. IMPRESSION: No evidence of acute intracranial abnormality. Specifically, no evidence of acute intracranial hemorrhage. If there is further clinical concern for acute/subacute ischemia would recommend further evaluation with MRI which would be more sensitive. Findings discussed with Dr. Lopez at 1:18 p.m. 04/29/2019. Please note that all CT scans at this facility use dose modulation, iterative reconstruction, and/or weight-based dosing when appropriate to reduce radiation dose to as low as reasonably achievable. Dictated by Jonny Cline MD @ 04/29/2022 1:18:45 PM (Electronic Signature) atient: SUKI MERRITT Facility:?[facility] Patient ID:?[id number] Site Patient ID:?[id number]. Site :?1965 Study:?CT Neck Angio Angio W/ 95CC [id number] 1:05:39 PM Ordering Physician:Marty Noel Final Report: DATE: 04/29/2022 CLINICAL HISTORY: Patient with dizziness. TECHNIQUE: Standard helical CT image acquisition of the neck up to the skull base after bolus intravenous contrast enhancement. Multiplanar reconstructed images performed on a separate workstation. COMPARISON: CT same day. FINDINGS: The origins of the great vessels from the aortic arch are patent. The origin of the right vertebral artery is patent. The origin of the left vertebral artery is patent. The common carotid arteries are patent. There is no stenosis at the origin of the right internal carotid artery. There is no stenosis at the origin of the left internal carotid artery. The rest of the cervical segments of the internal carotid arteries are patent up to the skull base. The right vertebral artery is dominant. The cervical segments of the vertebral arteries are patent up to the skull base. The visualized intracranial vasculature is unremarkable. The visualized lung apices are unremarkable. The thyroid gland is unremarkable. The soft tissues of the neck are unremarkable. There are degenerative changes in the cervical spine. IMPRESSION: Normal CT angiogram of the neck. Please note that all CT scans at this facility use dose modulation, iterative reconstruction, and/or weight-based dosing when appropriate to reduce radiation dose to as low as reasonably achievable. Dictated by Daniele Rao MD @ 04/29/2022 1:57:17 PM (Electronic Signature) Patient: SUKI MERRITT Facility:?[facility] Patient ID:?[id number] Site Patient ID:?[id number]. Site :?1965 Study:?CT Head Angio W/ 95CC [id number] 1:05:43 PM Ordering Physician:Marty Noel Final Report: DATE: 04/29/2022 CLINICAL HISTORY: Patient with dizziness. TECHNIQUE: Standard helical CT image acquisition through the intracranial circulation following intravenous administration of contrast material with bolus tracking. Multiplanar reconstructed images were performed and interpreted. COMPARISON: CT same day. FINDINGS: There is no cerebral aneurysm or large vessel occlusion. The right internal carotid artery is normal. The right middle cerebral artery and its branches are normal. The right anterior cerebral artery and its branches are normal. The left internal carotid artery is normal. The left middle cerebral artery and its branches are normal. The left anterior cerebral artery and its branches are normal. The anterior communicating artery is well visualized and appears normal. The right vertebral artery and PICA are normal. The left vertebral artery and PICA are normal. The right vertebral artery is dominant. The basilar artery is patent and appears normal. The right posterior cerebral artery is normal. The left posterior cerebral artery is normal. The visualized venous structures are patent. IMPRESSION: Normal CT angiogram of the head without intracranial aneurysm or other neurovascular abnormality. Please note that all CT scans at this facility use dose modulation, iterative reconstruction, and/or weight-based dosing when appropriate to reduce radiation dose to as low as reasonably achievable. Dictated by Daniele Rao MD @ 04/29/2022 1:55:00 PM (Electronic Signature) <Bert Lopez MD - Last Filed: 05/01/22 00:53> ECG Data Attestation: I personally reviewed and interpreted this ECG as follows: <Bert Lopez MD - Last Filed: 05/01/22 00:53> ECG interpretation date: 04/29/22 <Bert Lopez MD - Last Filed: 05/01/22 00:53> Interpretation: Sinus rhythm with the occasional PVCs, incomplete right bundle-branch block, no acute ST wave changes <Bert Lopez MD - Last Filed: 05/01/22 00:53> Discharge Plan Discharge Clinical Impression: Vertigo <Bert Lopez MD - Last Filed: 05/01/22 00:53> Patient Disposition: Home w/ Parent or Adult <Bert Lopez MD - Last Filed: 05/01/22 00:53> Condition: Improved <Bert Lopez MD - Last Filed: 05/01/22 00:53> Additional Instructions: It does appear that this was more of peripheral issue. I am glad you are feeling better. You might want to schedule a follow-up with your primary doctor for about a week in from now if possible if the symptoms are just continuing for you. This may involve a referral to physical therapy or other. I understand you wanted to avoid the benzodiazepines. I would probably avoid alcohol in the short term. You might consider taking this meclizine regularly dosed 3 times a day over the next 4- 5 days if it does not make you too tired. Otherwise you could take it as singular dosing if you are feeling dizzy-sasha. Return for marked increase in similar symptoms, repeated vomiting, associated chest pain or shortness of breath, new and focal weakness. No restrictions at this time other than related to your symptoms. You might also check your blood pressure after a period of rest every other day over about a week to make sure that is staying in a good range. <Bert Lopez MD - Last Filed: 05/01/22 00:53> Prescriptions: New meclizine 25 mg tablet 25 mg PO TID Qty: 21 0RF <Bert Lopez MD - Last Filed: 05/01/22 00:53> Follow Up/Referrals: Provider,Not a Local [Primary Care Provider] - <Bert Lopez MD - Last Filed: 05/01/22 00:53> Stand Alone Forms: [facility] Info Instructions <Bert Lopez MD - Last Filed: 05/01/22 00:53>
[2022-04-29 13:54] LABS: SARS PCR* Negative SARS-CoV-2 (Negative)
[2022-04-29] MEDS: ASPIRIN 81 MG TAB.CHEW 324 MG PO (14:05)
--- NOTE | 2022-04-29 14:30 | ED.NURSE ---
Pt ambulatory to and from bathroom. Tolerated ambulation well.
[2022-04-29 17:06] LABS: C Reactive Protein* < 0.5 mg/dL (0.5-1.0)
== END 2022-04-29 18:42 | disposition home or self-care (01) ==
PROVIDERS: Emergency Provider Family Medicine
DX: R42 Dizziness and giddiness (principal)
CPT/HCPCS: 36415; 70450; 70496; 70498; 70551; 80048; 84484; 85025; 86140; 87502; 87634; 87635; 93005; 94761; 96374; 99285; A9270; J2060; J7030; Q9967

== ENCOUNTER 2023-07-17 08:58 | Emergency (ER) | payer OTHER, SELFPAY ==
--- NOTE | 2023-07-17 09:09 | ED_ITS ---
HPI - General Adult General Time Seen by Provider: 09:09 Date Seen: 07/17/23 Chief complaint: Chest Pain Stated complaint: chest pain Time Seen by Provider: 07/17/23 09:09 Source: patient, RN notes reviewed and old records reviewed Mode of arrival: ambulatory Limitations: no limitations History of Present Illness HPI narrative: 58-year-old male presents today with chest pain. Patient notes over the last couple of days he has had episodes of shock like chest pain in the left chest. This lasts a 1-2 seconds and goes away. Not associated with activity, movement. No associated cough, shortness of breath, nausea vomiting. No dizziness or lightheadedness. Does not feel like his heart is skipping beats. No family history of cardiac disease, no personal history of cardiac disease. No history of smoking. Related Data Home Medications Medication Instructions Recorded Confirmed cyclosporine 100 mg capsule 200 mg PO BID 07/17/23 07/17/23 Previous Rx's Medication Instructions Recorded meclizine 25 mg tablet 25 mg PO TID #21 tabs 04/29/22 Allergies Allergy/AdvReac Type Severity Reaction Status Date / Time No Known Drug Allergies Allergy Verified 04/29/22 12:15 [facility] Medical History Adenomatous colon polyp Low back pain Surgical History History of total right hip arthroplasty Hx of arthroscopy of right knee Hx of colonoscopy Hx of laminectomy Social History Smoking Status: Never smoker Do you use any of these nicotine containing products: None Second hand tobacco smoke exposure: No How often do you have a drink containing alcohol: 2-4 times a month How often do you have six or more drinks on one occasion: Never AUDIT-C Alcohol total score: 2 Non-prescribed substance use: denies use Caffeine: No service: No Exam Narrative: Exam Narrative: General: Well-developed and well-nourished, no acute distress Head: Atraumatic and normocephalic Eyes: Pupils are equal reactive, extraocular motions intact, conjunctiva clear ENT: External nose and ears are normal, posterior pharynx without erythema or exudate Neck: No midline cervical tenderness, full spontaneous range of motion the neck, trachea midline, no adenopathy Heart: Regular rate and rhythm no murmurs or thrills Lungs: Clear to auscultation bilaterally without wheezes or crackles Abdomen: Soft, nontender, nondistended with active bowel sounds Musculoskeletal: No tenderness, deformity, or edema Neurologic: Awake, alert, and oriented x3, no gross focal neurologic deficits, cranial nerves intact as tested Psych: Mood and affect are appropriate Skin: No rashes Const: Vital Signs, click to edit/add: Vital Signs - 24 hr 07/17/23 09:14 Temperature 96.9 F L Pulse Rate [Pulse Oximeter] 62 Respiratory Rate 18 Blood Pressure [Le ft Upper Arm] 178/97 H Pulse Oximetry 98 Oxygen Delivery Me thod Room Air Course Course ED Course: Patient seen and examined, prior records are reviewed. Patient presents today with left-sided chest pain that has been intermittent for the last couple of days. He describes it as a sharp shock-like pain that last a 2nd or 2 and goes away. Not associated with any activity. EKG is reassuring. Story is not typical of acute coronary syndrome and is more likely in store marketing representative of musculoskeletal or neuropathic pain. That being said, labs ordered along with chest x-ray. Reevaluation(s) Time of Reevaluation #1: 10:31 Reevaluation #1: Labs ordered and independently interpreted by me with negative troponin, mild leukopenia, normal basic metabolic panel, negative BNP. Chest x-ray independently interpreted by me negative for acute findings. Given atypical character of symptoms and that they have been going on for couple of days, repeat troponin not indicated. Patient is stable for discharge with outpatient follow-up Vital Signs Vital signs: Initial Vital Signs Temperature 96.9 F L 07/17/23 09:14 Temperature Source Temporal Artery Scan 07/17/23 09:14 Pulse Rate 62 07/17/23 09:14 Respiratory Rate 18 07/17/23 09:14 Blood Pressure 178/97 H 07/17/23 09:14 Blood Pressure Mean 124 H 07/17/23 09:14 Pulse Oximetry 98 07/17/23 09:14 Oxygen Delivery Method Room Air 07/17/23 09:14 Vital Signs Temperature 96.9 F L 07/17/23 09:14 Pulse Rate 62 07/17/23 09:14 Respiratory Rate 18 07/17/23 09:14 Blood Pressure 178/97 H 07/17/23 09:14 Pulse Oximetry 98 07/17/23 09:14 Oxygen Delivery Method Room Air 07/17/23 09:14 Temperature 96.9 F L 07/17/23 09:14 Pulse Rate 62 07/17/23 09:14 Respiratory Rate 18 07/17/23 09:14 Blood Pressure 178/97 H 07/17/23 09:14 Pulse Oximetry 98 07/17/23 09:14 Oxygen Delivery Method Room Air 07/17/23 09:14 Medical Decision Making Lab Data Labs: Lab Results 07/17/23 Range/Units 09:33 WBC 4.40 L (4.50-11.00) K/uL RBC 4.43 (4.30-5.90) m/uL Hgb 13.8 (13.5-17.5) gm/dL Hct 41.1 (37.0-53.0) % MCV 93 (80-100) fL MCH 31 (26-34) pg MCHC 34 (32-36) gm/dL RDW Coeff of Rolo 13.5 (11.5-15.5) % Plt Count 219 (140-440) K/uL Neut % (Auto) 45.0 (42.0-72.0) % Lymph % (Auto) 44.3 H (20-44) % Potter % (Auto) 8.9 (0.0-11.0) % Eos % (Auto) 1.4 (0.0-7.0) % Baso % (Auto) 0.2 (0.0-3.0) % Neut # (Auto) 2.00 (1.7-7.0) K/uL Lymph # (Auto) 1.90 (0.90-2.90) K/uL Potter # (Auto) 0.40 (0.00-0.90) K/UL Eos # (Auto) 0.10 (0.00-0.50) K/uL Baso # (Auto) 0.00 (0.00-0.30) K/uL Abs Immat Gran (auto) 0.00 (0.00-0.30) K/uL Imm/Tot Granulo (auto) 0.2 % Sodium 139 (135-149) mmol/L Potassium 4.5 (3.6-5.1) mmol/L Chloride 106 (96-114) mmol/L Carbon Dioxide 25 (20-32) mmol/L Anion Gap 8 (7-15) mEq/L BUN 22 (7-30) mg/dL Creatinine 0.8 (0.5-1.5) mg/dL Estimated Creat Clear 110.97 Estimated GFR 101 ml/min Glucose 101 (60-115) mg/dL Calcium 9.3 (8.4-10.6) mg/dL NT-Pro-B Natriuret Pep 29 pg/mL POC Troponin I 0.00 L (0.01-0.04) ng/ml ECG Data Attestation: I personally reviewed and interpreted this ECG as follows: Prior ECG tracings: available for review Interpretation: Performed at 9:11 a.m. demonstrates sinus rhythm rate 59, incomplete right bundle-branch block, no acute ischemic changes, QTC 411, RI 164. Compared to prior of April 2022, no acute changes. Discharge Plan Discharge Clinical Impression: Atypical chest pain Patient Disposition: Home, Self-Care Condition: Stable Instructions: Noncardiac Chest Pain (ED) Additional Instructions: Take Tylenol or ibuprofen as needed for pain. Follow-up with your primary care doctor next week for recheck and further evaluation if needed Activity Level: Activity as Tolerated Discharge Diet: Regular Prescriptions: No Action meclizine 25 mg tablet 25 mg PO TID Qty: 21 0RF cyclosporine 100 mg capsule 200 mg PO BID Follow Up/Referrals: Provider,Not a Local [Primary Care Provider] - Stand Alone Forms: [employer] Info Instructions
[2023-07-17 09:14] VITALS: BP 178/97; PULSE 62; RESP 18; TEMP 36.1; O2SAT 98; BMI 36.3
--- NOTE | 2023-07-17 09:34 | XR_ITS ---
Patient: SUKI ROSEN Facility:?[facility] Patient ID:?[id number] Site Patient ID:?[id number]. Site :?1965 Study:?XRay-Chest 2 VIEW-07/17/2023 10:53:28 AM Ordering Physician:?DR. LIU Final Report: Indication: Chest pain Comparison: None available. Technique: PA and lateral views of the chest Findings: There is no focal consolidation, effusion, or pneumothorax. The cardiomediastinal silhouette is within normal limits. The bony thorax is grossly intact. Impression: No acute cardiopulmonary abnormality. Dictated by Herbie Valdez MD @ 07/17/2023 11:16:16 AM Signed by:?Herbie Valdez MD @07/17/2023 11:16:16 AM (Electronic Signature)
[2023-07-17 09:44] LABS: Basophils Percent Auto 0.2 % (0.0-3.0); Eosinophils Percent Auto 1.4 % (0.0-7.0); Hematocrit 41.1 % (37.0-53.0); Hemoglobin* 13.8 gm/dL (13.5-17.5); Immature Granulocytes Pct Auto 0.2 %; Lymphocytes Percent Auto 44.3 % (20-44); Mean Corpuscular HGB Conc 34 gm/dL (32-36); Mean Corpuscular Hemoglobin 31 pg (26-34); Mean Corpuscular Volume 93 fL (80-100); Monocytes Percent Auto 8.9 % (0.0-11.0); Platelet Count* 219 K/uL (140-440); RDW Coefficient of Variation % 13.5 % (11.5-15.5); Red Blood Count 4.43 m/uL (4.30-5.90)
[2023-07-17 09:50] LABS: Slide Review Reflex No
[2023-07-17 09:57] LABS: Chloride* 106 mmol/L (96-114); Potassium* 4.5 mmol/L (3.6-5.1); Sodium* 139 mmol/L (135-149)
[2023-07-17 10:00] LABS: Anion Gap 8 mEq/L (7-15); Blood Urea Nitrogen* 22 mg/dL (7-30); Carbon Dioxide* 25 mmol/L (20-32); Creatinine* 0.8 mg/dL (0.5-1.5); Est. Creatinine Clearance* 110.97; Estimated Glomerular Filt Rate 101 ml/min; Glucose* 101 mg/dL (60-115)
[2023-07-17 10:01] LABS: Calcium* 9.3 mg/dL (8.4-10.6)
[2023-07-17 10:12] LABS: NT Pro B Type NatriureticPept* 29 pg/mL
== END 2023-07-17 11:26 | disposition home or self-care (01) ==
PROVIDERS: Emergency Provider Family Medicine
DX: R07.89 Other chest pain (principal)
CPT/HCPCS: 36415; 71046; 80048; 83880; 84484; 85025; 93005; 99284; 99285

== ENCOUNTER 2024-05-26 08:18 | Emergency (ER) | payer OTHER, SELFPAY ==
[2024-05-26] VITALS (8 sets, daily range): BP systolic 107–144; BP diastolic 53–90; PULSE 57–74; RESP 16–18; TEMP 36.4; O2SAT 92–97; BMI 36.3
--- OUTSIDE RECORDS SUMMARY | 2024-05-26 08:21 | XMS_ITS | Clinical Summary ---
Author Organization [facility] Address [place], [place] [address] Care Team Providers Care Assistant Sales Director Name Role Phone Pcp, No Primary Care Provider Unavailabl e Allergies No known active allergies Medications triamcinolone (ARISTOCORT; KENALOG) 0.1 % cream APPLY TO AFFECTED AREA ON BODY 1-2X DAILY FOR 2 WEEKS AT A TIME REPEAT NEEDED FOR FLARES 07/05/2021 Active Active Problems Problem Noted Date Diagnosed Date Primary osteoarthritis of right hip 04/06/2017 Lumbar facet arthropathy 04/06/2017 Adenomatous colon polyp 04/03/2014 Overview (05/26/2019): Colonoscopy 03/2014 polyp repeat in 5 years Colonoscopy 04/2019 normal, repeat in 5 years Low back pain Encounters Date Type Department Care Team Description 04/21/2024 Orders Only [facility] [address] [place] [address] Jose Cruz Acuña MD <No scans attached> from Last 3 Months Immunizations Name Administration Dates Next Due COVID-19 vaccine (Moderna 100mcg/0.5mL) PF, MDV 04/10/2021 Hepatitis B (Adult) 01/06/2000,08/05/1999,1999 Influenza A (H1N1), Inactivated 05/16/2009 Influenza, IIV3 (Age >=3 years) 02/14/20 14,02/02/2012,02/03/2011,2009 Influenza, IIV4 01/28/2016,01/31/2013 Influenza, IIV4 (=>6mos) MDV 02/01/2020, 01/24/2019,01/25/2018,2016,01/29/2015 Influenza, Injectable, Mdck, Quadrivalent, W/preservative 02/05/2021 Td (Age >=7 Years) 07/27/1994 Td, Preservative Free (age > = 7 Years) 01/31/2016 Tdap 06/06/2005 Family History Medical History Relation Name Comments Good Health Father Good Health Mother Heart Disease Other 1 none Diabetes Other 2 none Cancer Son testicular Relation Name Status Comments Father Mother Other 1 Other 2 Son Social History Tobacco Use Types Packs/Day Years Used Date Smoking Tobacco: Never Smokeless Tobacco: Never Tobacco Cessation:Counseling Given: Yes Alcohol Use Standard Drinks/Week Comments Yes 0 (1 standard drink = 0.6 oz pur e alcohol) occas PHQ-2 Answer Date Recorded PHQ-2 Score 1 06/27/2018 Social Connections Answer Date Recorded Frequency of Communication with Friends and Fami ly Not on file 04/27/2021 Financial Resource Strain Answer Date R ecorded Difficulty of Paying Living Expenses Not on file 04/27/2021 Difficulty of Paying Living Expenses Not on file 04/27/2021 Sex and Gender Information Value Date Recorded Sex Assigned at Not on file Legal 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 Gender Identity Not on file Sexual Orientation Not on file 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 [employer] Not on file Not on file Not on file Obstetrics History Last Filed Vital Signs Vital Sign Reading Time Taken Comments Blood Pressure 132/85 02/07/2022 8:25 AM CDT Pulse 75 02/07/2022 8:25 AM CDT Temperature 37 C (98.6 F) 06/18/2021 2:31 PM MACHINE WHITENER Respiratory Rate 20 02/09/2019 3:39 PM CDT Oxygen Saturation 97% 02/07/2022 8:25 AM CDT Inhaled Oxygen Concentration - - Weight 120.7 kg (266 lb) 02/07/2022 8:25 AM CDT Height 167 cm (5' 5.75) 02/09/2019 3:39 PM CDT Body Mass Index 43.26 02/09/2019 3:39 PM CDT Plan of Treatment Health Maintenance Due Date Last Done Comments HIV for age 15-65 1978 Hepatitis C screening for ag e 18-79 1981 Pneumococcal series for age 50+ (1 of 1 - PCV) 2013 Zoster (shingles) series for age 50+ (1 of 2) 2013 Depression screening for age 12+ 04/01/2019 04/01/20 18, 01/31/2016 BMI (ht and wt on same day) for age 18+ 02/10/2020 02/09/2019, 09/30/2018, 04/01/2018, Additional history exists COVID-19 vaccine series ( season) 2023 04/10/2021, 08/15/2020, 07/18/2020 Influenza for age 50-64 12/27/2023 02/06/20, 02/01/2020, 01/24/2019, Additional history exists Colonoscopy through age 75 05/26/202405/26, 05/26/2019, 05/26/2019, Additional history exists Tetanus booster 01/30/2026 01/31/2016, 05/28, 07/27/1994 Lipids for age 45-75 07/27/2028 07/28/2023, 06/30/2023, 06/30/2023, Additional history exists RSV vaccine for adults or (1 - 1-dose 75+ series) 2038 Tdap Completed 06/06/2005 Procedures Procedure Name Priority Date/Time Associated Diagnosis Comments LIPID PANEL W REFLEX MEASURED LDL Routine 07/28/2023 3:16 PM CDT Encounter for long-term (current) use of other medications COLONOSCOPY 05/26/2019 7:32 AM MACHINE WHITENER from Last 3 Months or Most Recently Relevant to Health Maintenance Results * (ABNORMAL) LIPID PANEL W REFLEX MEASURED LDL (07/28/2023 3:16 PM CDT) CHOLESTEROL,TOTAL 224(H) 100 - 199 mg/dL 07/28/2023 9:32 PM CDT [facility] Comment: Cholesterol, Total Reference Ranges Desirable <200 mg/dL Borderline 200-239 mg/dL High >=240 mg/dL TRIGLYCERIDES 320(H) <150 mg/dL 07/28/2023 9:32 PM CDT [facility] HDL CHOLESTEROL 38(L) >40 mg/dL 9:32 PM CDT [facility] NON-HDL CHOLESTEROL 186(H) <145 mg/dl 07/28/2023 9:32 PM CDT [facility] CHOL/HDL RATIO 5.89(H) <4.50 07/28/2023 9:32 PM CDT [facility] LDL CHOLESTEROL 122 <=130 mg/dL 07/28/2023 9:32 PM CDT [facility] VLDL CHOLESTEROL 64(H) <=30 mg/dL 07/28/2023 9:32 PM CDT [facility] PROVIDER ORDERED STATUS RANDOM 07/28/2023 9:32 PM CDT [facility] Blood BLOOD SPECIMEN / Unknown Venipuncture / Unknown 07/28/2023 3:16 PM CDT 07/28/2023 3:18 PM CDT us Elaine MORENO CHEMISTRY Final R esult [facility] [address] [place] [address], [place] * COLONOSCOPY (05/26/2019 7:32 AM MACHINE WHITENER) 05/26/2019 7:32 AM MACHINE WHITENER Narrative Transcriptions Jose Cruz Acuña MD - 05/26/2019 8:22 AM CST Patient Name: Selvin Merritt Procedure Date: 05/26/2019 Gender: Male Date of : 1965 Admit Type: Outpatient Procedure: Colonoscopy Proceduralist: Jose Cruz Acuña MD , Modesta Yung RN(Nurse) Indications/Pre-Op Diagnosis: Surveillance: Personal history ofadenomatous polyps on last colonoscopy 5 years ago, Last colonoscopy: March 2014 Medications: Fentanyl 100 micrograms IV, Midazolam 2 mgIV, The level of sedation administered wasmoderate Procedure Description: The patient had risks, benefits and alternatives explained to andgave informed consent. The patient had a stable cardiopulmonary status and judged an adequate candidate for conscious sedation. The [id number] was passed through the anus and advanced tothe cecum, identified by appendiceal orifice and ileocecal valve. The colonoscopy was performed without difficulty. The patient toleratedthe procedure well. The quality of the bowel preparation was good. Complications: No immediate complications. Estimated Blood Loss & Specimen: Estimated blood loss: none. Specimen collected - None Findings: The perianal and digital rectal examinations were normal. The entire examined colon appeared normal on direct and retroflexion views. Impressions/Post-Op Diagnosis: - The entire examined colon is normal on direct and retroflexionviews. - No specimens collected. Recommendation: - Patient has a contact number available for emergencies. The signsand symptoms of potential delayed complications were discussed with the patient. Return to normal activities tomorrow. Written discharge instructions were provided to the patient. - Resume previous diet. - Continue present medications. - Repeat colonoscopy in 5 years for surveillance. Moderate Sedation: Moderate (conscious) sedation was administered by the endoscopy nurse and supervised by the endoscopist. The following parameters were monitored: oxygen saturation, heart rate, respiratory rate, blood pressure, adequacy of pulmonary ventilation and reponse to care. [facility] and nursing notes for moderate sedation details. Total physician intraservice time was 15 minutes. Jose Cruz Acuña MD 05/26/2019 8:22:22 AM This report has been signed electronically. Note Initiated On: 05/26/2019 7:32 AM Procedure Code(s): --- Professional --- 37038, Colonoscopy, flexible; diagnostic, including collection of specimen(s) bybrushing or washing, when performed (separateprocedure) Diagnosis Code(s): --- Professional --- Z86.010, Personal history of colonicpolyps CPT copyright 2018 [employer]. All rights reserved. The codes documented in this report are preliminary and upon clinical dietitian reviewmay be revised to meet current compliance requirements. Scope In: 7:59:30 AM Scope Withdrawal Time 0 hours 7 minutes 49 seconds Scope Out: 8:12:11 AM Jose Cruz Acuña MD PROCEDURE ORD Final Res ult from Last 3 Months or Most Recently Relevant to Health Maintenance Insurance [employer] Care Teams Assistant Sales Director Relationship Specialty Start Date End Date Pcp, No . PCP - General 05/23/13
--- NOTE | 2024-05-26 09:01 | ED.CHESTPAIN ---
HPI - Chest Pain General Date Seen: 05/26/24 Chief Complaint: Chest Pain Stated Complaint: chest pains Time Seen by Provider: 05/26/24 09:00 History of Present Illness HPI narrative: 59-year-old gentleman presenting to the ER this morning with chest pain. He is generally healthy. No known history of coronary artery disease, arrhythmia, valvular disease. No history of lung disease. No history of DVT PE. He presents to the ER today for evaluation of chest pain. He notes that he has had episodes of chest pain that have awoken him from sleep for the past 3 or 4 nights. The pains tend to be in the center or distal left of his sternum. They are very brief, lasting 1 or 2 seconds and very sudden. There is no clear pattern to them. No relationship to position, no relationship to breathing. Not seemingly relating to food or fasting. They also occur sometimes during the day, but are most prominent at night. He is not feeling any palpitations. No dizzy spells or fainting. No pain through his back. No pain radiating down his arms. No nausea. No abdominal pain. He has no recent travel or immobilization. No swelling in his legs. Per medical record he was seen in the ER in June 2023 for intermittent chest pains. Blood pressure was 178/97, otherwise vital signs were normal. WBC 4.4, hemoglobin 13.8, platelet count 219, sodium 139, potassium 4.5, BUN 22, creatinine 0.8, glucose 101, and terminal proBNP 29, troponin 0.00 Related Data Home Medications ?Medication ?Instructions ?Recorded ?Confirmed cyclosporine 100 mg capsule 200 mg PO BID 07/17/23 07/17/23 Previous Rx's ?Medication ?Instructions ?Recorded meclizine 25 mg tablet 25 mg PO TID #21 tabs 04/29/22 omeprazole 40 mg capsule,delayed 40 mg PO DAILY #30 caps 05/26/24 release Allergies Allergy/AdvReac Type Severity Reaction Status Date / Time No Known Drug Allergies Allergy Verified 04/29/22 12:15 [facility] Medical History Adenomatous colon polyp Low back pain Surgical History History of total right hip arthroplasty Hx of arthroscopy of right knee Hx of colonoscopy Hx of laminectomy Social History Smoking Status: Never smoker Do you use any of these nicotine containing products: None Second hand tobacco smoke exposure: No How often do you have a drink containing alcohol: never How often do you have six or more drinks on one occasion: Never AUDIT-C Alcohol total score: 0 Non-prescribed substance use: denies use Caffeine: No service: No Exam Narrative Exam Narrative: Constitutional: Appears well-developed and well-nourished. Alert. Conversant. Non toxic. HENT: Head: Atraumatic. Nose: Nose normal. Mouth/Throat: Oral mucosa is clear and moist. no trismus. Pharynx normal. Tonsils symmetric. No tonsillar enlargement, erythema, or exudate. Eyes: Conjunctivae normal. EOM normal. Pupils equal, round, and reactive to light. No scleral icterus. Neck: Normal range of motion. Neck supple. No tracheal deviation present. Cardiovascular: Normal rate, regular rhythm. No gallop. No friction rub. No murmur heard. Symmetric radial and PT artery pulses Pulmonary/Chest: Effort normal. No stridor. No respiratory distress. No wheezes. No rales. No rhonchi . No tenderness. Abdominal: Soft. Bowel sounds normal. No distension. No mass. No tenderness. No rebound. No guarding. Musculoskeletal: RUE: Normal range of motion. No tenderness. No deformity LUE: Normal range of motion. No tenderness. No deformity RLE: Normal range of motion. No edema. No tenderness. No deformity LLE: Normal range of motion. No edema. No tenderness. No deformity Neurological: Alert and oriented to person, place, and time. Normal strength. CN II-VII intact. No sensory deficit. GCS eye subscore is 4. GCS verbal subscore is 5. GCS motor subscore is 6. Normal coordination Skin: Skin is warm and dry. No rash noted. No pallor. Normal capillary refill. Psychiatric: Normal mood. Normal affect. Const Vital Signs, click to edit/add: Vital Signs - 24 hr 05/26/24 08:36 05/26/24 09:26 05/26/24 09:27 Temperature 97.5 F L Pulse Rate 69 60 Pulse Rate [Pulse Oximeter] 74 Respiratory Rate 18 Blood Pressure 107/53 L Blood Pressure [Right Upper Arm] 141/90 H Pulse Oximetry 94 92 94 Oxygen Delivery Method Room Air 05/26/24 09:30 05/26/24 10:02 05/26/24 11:02 Temperature Pulse Rate 62 58 L 64 Pulse Rate [Pulse Oximeter] Respiratory Rate Blood Pressure 127/82 131/83 Blood Pressure [Right Upper Arm] Pulse Oximetry 94 95 94 Oxygen Delivery Method 05/26/24 11:30 05/26/24 12:03 Temperature Pulse Rate 57 L 57 L Pulse Rate [Pulse Oximeter] Respiratory Rate 16 Blood Pressure 144/79 H Blood Pressure [Right Upper Arm] Pulse Oximetry 95 97 Oxygen Delivery Method Course Vital Signs Vital signs: Initial Vital Signs Temperature 97.5 F L 05/26/24 08:36 Temperature Source Temporal Artery Scan 05/26/24 08:36 Pulse Rate 74 05/26/24 08:36 Pulse Rhythm Regular 05/26/24 08:36 Respiratory Rate 18 05/26/24 08:36 Blood Pressure 141/90 H 05/26/24 08:36 Blood Pressure Mean 107 H 05/26/24 08:36 Pulse Oximetry 94 05/26/24 08:36 Oxygen Delivery Method Room Air 05/26/24 08:36 Vital Signs Temperature 97.5 F L 05/26/24 08:36 Pulse Rate 74 05/26/24 08:36 Respiratory Rate 18 05/26/24 08:36 Blood Pressure 141/90 H 05/26/24 08:36 Pulse Oximetry 94 05/26/24 08:36 Oxygen Delivery Method Room Air 05/26/24 08:36 Temperature 97.5 F L 05/26/24 08:36 Pulse Rate 57 L 05/26/24 12:03 Respiratory Rate 16 05/26/24 11:30 Blood Pressure 144/79 H 05/26/24 12:03 Pulse Oximetry 97 05/26/24 12:03 Oxygen Delivery Method Room Air 05/26/24 08:36 Medications Administered Medications: Discontinued Medications Generic Name Dose Route Start Last Admin Trade Name Freq PRN Reason Stop Dose Admin Aspirin 162 mg 05/26/24 09:18 05/26/24 09:22 Aspirin 81 Mg Tab.Chew PO 05/26/24 09:19 162 mg ONCE ONE Administration MDM - Chest Pain MDM Narrative Medical decision making narrative: This patient presents to the ER today for evaluation of intermittent very brief episodes of chest pain lasting 1 or 2 seconds each. They have primarily been waking up at sleep the past 3 or 4 nights buttock also occur occasionally during the daytime. Most recent brief episode of pain was couple of hours prior to arrival to the ER this morning.. Differential was broad. No evidence of palpitations, syncope or other cardiac dysrhythmia. We considered possible ACS, however workup with EKG and troponin is negative. HEART score is 2. Given time since onset of symptoms, we did check arrival and 2 over delta troponins which are both normal. I do not think the patient needs to be admitted for further sets of enzymes. EKG shows no evidence for pericarditis. Clinical presentation not suggestive of myocarditis. Chest x-ray shows no evidence for pneumonia, pneumothorax, pulmonary edema, pleural effusion, rib fracture, cardiomegaly. Mediastinum is normal on the x-ray. The patient has no ripping or tearing pain through to the back and has symmetric pulses on exam, no other acute neuro findings so I doubt aortic dissection. Risk of radiation and contrast exposure would outweigh the benefit of CT angiogram. We considered PE for this patient. D-dimer is normal per No wheezing or bronchospasm to suggest COPD/asthma. Cause for this bruise episodes of pain are unclear. He did not have any PVCs or other dysrhythmias here in the ER He does have a history of occasional ?heartburn? but has not been experiencing that lately. I wonder if these could be episodes of esophageal spasm. Will try him on empiric course of Prilosec also recommend close outpatient follow-up with his primary care provider for recheck. Consider possible outpatient EGD. No signs of chest wall cellulitis, shingles, injury. With reasonable clinical confidence, I think the patient is safe for outpatient follow up. Patient understands that the definitive diagnosis for his pain is not clear at this time. Potential for esophageal spasm is only a theory. Discussed return precautions. Questions answered. Patient voices comfort with the plan. Lab Data Labs: Lab Results 05/26/24 05/26/24 05/26/24 Range/Units 08:50 08:58 11:00 WBC 5.65 (4.50-11.00) K/uL RBC 4.25 L (4.30-5.90) m/uL Hgb 13.3 L (13.5-17.5) gm/dL Hct 38.9 (37.0-53.0) % MCV 92 (80-100) fL MCH 31 (26-34) pg MCHC 34 (32-36) gm/dL RDW Coeff of Rolo 13.6 (11.5-15.5) % Plt Count 232 (140-440) K/uL Neut % (Auto) 58.9 (42.0-72.0) % Lymph % (Auto) 30.1 (20-44) % [place] % (Auto) 9.2 (0.0-11.0) % Eos % (Auto) 1.2 (0.0-7.0) % Baso % (Auto) 0.4 (0.0-3.0) % Neut # (Auto) 3.33 (1.7-7.0) K/uL Lymph # (Auto) 1.70 (0.90-2.90) K/uL [place] # (Auto) 0.50 (0.00-0.90) K/UL Eos # (Auto) 0.07 (0.00-0.50) K/uL Baso # (Auto) 0.02 (0.00-0.30) K/uL Abs Immat Gran (auto) 0.01 (0.00-0.30) K/uL Imm/Tot Granulo (auto) 0.2 % D-Dimer Quant (PE/DVT) 0.16 (0.00-0.50) ug/ml Sodium 140 (135-149) mmol/L Potassium 4.0 (3.6-5.1) mmol/L Chloride 105 (96-114) mmol/L Carbon Dioxide 25 (20-32) mmol/L Anion Gap 10 (7-15) mEq/L BUN 17 (7-30) mg/dL Creatinine 0.8 (0.5-1.5) mg/dL Estimated Creat Clear 87.67 Estimated GFR 101 ml/min Glucose 99 (60-115) mg/dL Calcium 8.9 (8.4-10.6) mg/dL POC Troponin I 0.00 L 0.01 (0.01-0.04) ng/ml Imaging Data Chest x-ray: Attestation: I have reviewed the pertinent imaging results. Radiologist's impression: IMPRESSION: No acute findings and no significant changes from the prior exam. ECG Data Attestation: I personally reviewed and interpreted this ECG as follows: Interpretation: Normal sinus rhythm Rate: 64 NV: 160 QRS axis: Normal ST segment/T wave: No ST segment elevation or depression QTc: 427 Discharge Plan Discharge Clinical Impression: Chest pain Patient Disposition: Home, Self-Care Condition: Stable Instructions: Chest Pain (DC) Additional Instructions: As we discussed, please come back to the ER right away if you have worsening chest pains, trouble breathing, or any other new symptoms Please follow-up with your regular clinic at [facility] as soon as possible. Call today to arrange an ER follow-up visit appointment. Please start on omeprazole in case your chest pain is being caused by stomach acid or reflux. Prescriptions: New omeprazole 40 mg capsule,delayed release(DR/EC) 40 mg PO DAILY Qty: 30 0RF No Action meclizine 25 mg tablet 25 mg PO TID Qty: 21 0RF cyclosporine 100 mg capsule 200 mg PO BID Follow Up/Referrals: Provider,Not a Local [Primary Care Provider] - Stand Alone Forms: [employer] Info Instructions
[2024-05-26 09:07] LABS: Basophils Absolute Auto 0.02 K/uL (0.00-0.30); Basophils Percent Auto 0.4 % (0.0-3.0); Eosinophils Absolute Auto 0.07 K/uL (0.00-0.50); Eosinophils Percent Auto 1.2 % (0.0-7.0); Hematocrit 38.9 % (37.0-53.0); Hemoglobin* 13.3 gm/dL (13.5-17.5); Immature Granulocytes Abs Auto 0.01 K/uL (0.00-0.30); Immature Granulocytes Pct Auto 0.2 %; Lymphocytes Percent Auto 30.1 % (20-44); Mean Corpuscular HGB Conc 34 gm/dL (32-36); Mean Corpuscular Hemoglobin 31 pg (26-34); Mean Corpuscular Volume 92 fL (80-100); Monocytes Percent Auto 9.2 % (0.0-11.0); Neutrophils Absolute Auto 3.33 K/uL (1.7-7.0); Neutrophils Percent Auto 58.9 % (42.0-72.0); Platelet Count* 232 K/uL (140-440); RDW Coefficient of Variation % 13.6 % (11.5-15.5); Red Blood Count 4.25 m/uL (4.30-5.90); White Blood Count* 5.65 K/uL (4.50-11.00)
[2024-05-26 09:08] LABS: Slide Review Reflex No
[2024-05-26 09:19] LABS: Chloride* 105 mmol/L (96-114); Sodium* 140 mmol/L (135-149)
[2024-05-26 09:22] LABS: Blood Urea Nitrogen* 17 mg/dL (7-30); Creatinine* 0.8 mg/dL (0.5-1.5); Est. Creatinine Clearance* 87.67; Estimated Glomerular Filt Rate 101 ml/min
[2024-05-26] MEDS: ASPIRIN 81 MG TAB.CHEW 162 MG PO (09:22)
[2024-05-26 09:23] LABS: Anion Gap 10 mEq/L (7-15); Calcium* 8.9 mg/dL (8.4-10.6); Carbon Dioxide* 25 mmol/L (20-32); Glucose* 99 mg/dL (60-115)
--- OUTSIDE RECORDS SUMMARY | 2024-05-26 09:35 | XMS_ITS | Clinical Summary ---
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 Not on file Not on file Not on file Obstetrics History Last Filed Vital Signs Vital Sign Reading Time Taken Comments Blood Pressure 132/85 02/07/2022 8:25 AM CDT Pulse 75 02/07/2022 8:25 AM CDT Temperature 37 C (98.6 F) 06/18/2021 2:31 PM ONLINE MARKETING COORDINATOR Respiratory Rate 20 02/09/2019 3:39 PM CDT [...] of other medications COLONOSCOPY 05/26/2019 7:32 AM ONLINE MARKETING COORDINATOR from Last 3 Months or Most Recently Relevant to Health Maintenance Results * (ABNORMAL) LIPID PANEL W REFLEX MEASURED LDL (07/28/2023 3:16 PM CDT) CHOLESTEROL,TOTAL 224(H) 100 - 199 mg/dL 07/28/2023 9:32 PM CDT [facility] Comment: Cholesterol, Total Reference Ranges Desirable <200 mg/dL Borderline 200-239 mg/dL High >=240 mg/dL TRIGLYCERIDES 320(H) <150 mg/dL 07/28/2023 9:32 PM CDT [facility] HDL CHOLESTEROL 38(L) >40 mg/dL 9:32 PM CDT [facility] NON-HDL CHOLESTEROL 186(H) <145 mg/dl 07/28/2023 9:32 PM CDT [facility] CHOL/HDL RATIO 5.89(H) <4.50 07/28/2023 9:32 PM CDT [facility] LDL CHOLESTEROL 122 <=130 mg/dL 07/28/2023 9:32 PM CDT [facility] VLDL CHOLESTEROL 64(H) <=30 mg/dL 07/28/2023 9:32 PM CDT [facility] PROVIDER ORDERED STATUS RANDOM 07/28/2023 9:32 PM CDT [facility] Blood BLOOD SPECIMEN / Unknown Venipuncture / Unknown 07/28/2023 3:16 PM CDT 07/28/2023 3:18 PM CDT us Elaine MORENO CHEMISTRY Final R esult [facility] [address] [place] [address], [place] * COLONOSCOPY (05/26/2019 7:32 AM ONLINE MARKETING COORDINATOR) 05/26/2019 7:32 AM ONLINE MARKETING COORDINATOR Narrative Transcriptions Jose Cruz Acuña MD - [...] adequate candidate for conscious sedation. The [id number] was passed through the anus and advanced [...] reponse to care. [facility] and nursing [facility] for moderate sedation details. Total physician intraservice time was 15 minutes. Jose Cruz Acuña MD 05/26/2019 8:22:22 AM This report has been signed electronically. Note Initiated On: 05/26/2019 7:32 AM Procedure Code(s): --- Professional --- 29227, Colonoscopy, flexible; diagnostic, including collection of specimen(s) bybrushing or washing, when performed (separateprocedure) Diagnosis Code(s): --- Professional --- Z86.010, Personal history of colonicpolyps CPT copyright 2018 [employer]. All rights reserved. The codes documented in this report are preliminary and upon cloth bleaching range tender reviewmay be revised to meet current compliance requirements. Scope In: 7:59:30 AM Scope Withdrawal Time 0 hours 7 minutes 49 seconds Scope Out: 8:12:11 AM Jose Cruz Acuña MD PROCEDURE ORD Final Res ult from Last 3 Months or Most Recently Relevant to Health Maintenance Insurance [employer] Care Teams White Kid Buffer Relationship Specialty Start Date End Date Pcp, No . PCP - General 05/23/13
[2024-05-26 09:52] LABS: D Dimer Quantitative* 0.16 ug/ml (0.00-0.50)
[2024-05-26 11:24] LABS: Troponin, Point-of-Care* 0.01 ng/ml (0.01-0.04)
== END 2024-05-26 12:27 | disposition home or self-care (01) ==
PROVIDERS: Emergency Provider Emergency Medicine
DX: R07.9 Chest pain, unspecified (principal)
CPT/HCPCS: 36415; 71046; 80048; 84484; 85025; 85379; 93005; 99284; 99285; A9270